=== PATIENT | female | born 1955 ===

== ENCOUNTER 2023-01-09 05:29 | Day surgery (SDC) | payer OTHER ==
[~2023-01-09] VITALS: Ht 160 cm; Wt 79.8 kg
[~2023-01-09 05:29] MED LIST: SYNTHROID75 MCG PO; TENORMIN50 M1 PO
== END 2023-01-09 17:20 | disposition home or self-care (01) ==
LOC: CIR.AMB 05:29
PROVIDERS: ATTEND Surgery
DX: K81.1 Chronic cholecystitis (principal); K82.8 Other specified diseases of gallbladder; Z20.822 Contact with and (suspected) exposure to COVID-19; Z88.2 Allergy status to sulfonamides; Z88.1 Allergy status to other antibiotic agents; E03.9 Hypothyroidism, unspecified; I10 Essential (primary) hypertension